=== PATIENT | male | born 1945 | race Caucasian/White ===

== ENCOUNTER 2019-01-26 14:32 | Outpatient (CLI) | payer MEDICARE ==
[~2019-01-26] VITALS: Ht 182.9 cm; Wt 88.9 kg
[2019-01-26 14:45] VITALS: BP 108/67
--- NOTE | 2019-01-26 21:45 | Consultation ---
DATE OF CONSULTATION: 01/26/2019 GASTROENTEROLOGY CONSULTATION CONSULTING PHYSICIAN: Yassine Rivas M.D. CHIEF COMPLAINT: History of colonic polyps, chronic constipation. HISTORY OF PRESENT ILLNESS: The patient is a very pleasant 73-year-old male, referred to us for evaluation of constipation and history of colonic polyps. PAST MEDICAL HISTORY: 1. Diabetes. 2. Hypertension. 3. Hypothyroidism. PAST SURGICAL HISTORY: Hernia repair. MEDICATIONS: Metformin, lisinopril, and Synthroid. FAMILY HISTORY: No family history of GI malignancies. SOCIAL HISTORY: The patient denies any tobacco, alcohol, or drug abuse. ALLERGIES: No known drug allergies. REVIEW OF SYSTEMS: A 10-point review of systems was performed and pertinent positives in HPI. PHYSICAL EXAMINATION: GENERAL: He is a well-developed male. VITAL SIGNS: Temperature 98.8, blood pressure is 108/67, pulse is 82, respirations 20. HEENT: Normocephalic and atraumatic. Sclerae anicteric. NECK: Supple. No obvious evidence of lymphadenopathy. CARDIOVASCULAR: Regular rhythm. Plus S1 and S2. No obvious murmur. LUNGS: Clear to auscultation bilaterally. ABDOMEN: Positive bowel sounds. Soft and nontender. No rebound. No guarding. No peritoneal sign. EXTREMITIES: No cyanosis, no clubbing, and no edema. ASSESSMENT AND PLAN: This is a 73-year-old male with chronic constipation. He goes to the bathroom every three days. I offered him to get some treatment for chronic constipation. He said, he doest not want it. He needs a colonoscopy because he had 6 or 7 polyps and is referred for a colonoscopy. plan for schedule him for next Thursday. The patient was given instructions for colonoscopy and colonoscopy prep. he scheduled for next week. Yassien Rivas M.D. DR: SHARMIN JOB#: [id number] CC: CHRISTIAN
[2019-01-28] MEDS ORDERED: METFORMIN HCL1000 M1 ORAL (15:57)
[2019-01-28] MEDS ORDERED: LISINOPRIL5 MG ORAL (15:57)
[2019-01-28] MEDS ORDERED: LEVOTHYROXINE75 MCG ORAL (15:57)
== END 2019-01-26 16:00 | disposition home or self-care (01) ==
LOC: PAN 14:32
DX: K59.00 Constipation, unspecified (principal); Z86.010 Personal history of colon polyps; Z79.899 Other long term (current) drug therapy; Z79.84 Long term (current) use of oral hypoglycemic drugs
CPT/HCPCS: 99202

== ENCOUNTER 2019-02-02 07:33 | Day surgery (SDC) | payer MEDICARE, OTHER ==
[~2019-02-02] VITALS: Ht 182.9 cm; Wt 86.2 kg
[2019-02-02] VITALS (8 sets, daily range): BP systolic 107–127; BP diastolic 63–75
--- NOTE | 2019-02-02 07:22 | Anethesia Preoperative Eval ---
Anesthesia Pre-op PMH/ROS General Date of Evaluation: February 02, 2019 Anesthesiologist: Micah ASA Score: ASA 3 Mallampati Score Class I : Soft palate, uvula, fauces, pillars visible Class II: Soft palate, uvula, fauces visible Class III: Soft palate, base of uvula visible Class IV: Only hard plate visible Mallampati Classification: Class II Surgeon: Evelyn Diagnosis: Abdominal pain Surgical Procedure: colonoscopy Anesthesia History: none Family History: no anesthesia problems Allergies: Coded Allergies: No Known Allergies (Unverified , 01/28/19) Medications: see eMAR Patient NPO?: Yes NPO Date: February 02, 2019 NPO Time: 00:00 Past Medical History Cardiovascular: Reports: HTN, other - HLD, PVD; Denies: CAD, VA, valve dz, arrhythmia Pulmonary: Denies: asthma, COPD, JUSTIN, other Gastrointestinal/Genitourinary: Reports: other - BPH; Denies: GERD, CRI, ESRD Neurologic/Psychiatric: Denies: dementia, CVA, depression/anxiety, TIA, other Endocrine: Reports: DM, hypothyroidism; Denies: steroids, other HEENT: Reports: cataract (L), cataract (R), SAMISH (L), SAMISH (R); Denies: glaucoma, other Hematology/Immune: Denies: anemia, DVT, bleeding disorder, other Musculoskeletal/Integumentary: Denies: OA, RA, DJD, DDD, edema, other PSxH Narrative: hernia repair, tonsillectomy Anesthesia Pre-op Phys. Exam Physician Exam see chart Constitutional: NAD Cardiovascular: RRR, other - bilateral lower extremity pitting edema-baseline as per patient Respiratory: CTA Airway Exam Mallampati Score: Class II MO: full ROM: full Anesthesia Pre-op A/P Labs see chart Studies Pre-op Studies: EKG - sr Risk Assessment & Plan Assessment: ASA II Plan: MAC Status Change Before Surgery: No Pre-Antibiotics Drug: N/A Kiya Banda MD February 02, 2019 07:22
[~2019-02-02 07:33] MED LIST: DiphenhydrAMINE 50mg/ml Inj IVP PRN; Fleet's Enema 133ml RECTAL ONE; Fleet's Enema 133ml RECTAL SCH; LEVOTHYROXINE75 MCG ORAL; LISINOPRIL5 MG ORAL; LR 1000ml 1,000 ML IVLG SCH; METFORMIN HCL1000 M1 ORAL
--- NOTE | 2019-02-02 08:48 | Pre-Procedure Note/Attestation ---
Pre-Procedure Note/Attestation Complete Prior to Procedure Planned Procedure: not applicable Procedure Narrative: colonoscopy Indications for Procedure Pre-Operative Diagnosis: screening Attestation I attest that I discussed the nature of the procedure; its benefits; risks and complications; and alternatives (and the risks and benefits of such alternatives ), prior to the procedure, with the patient (or the patient's legal phlebotomy services representative). I attest that, if there was a reasonable possibility of needing a blood transfusion, the patient (or the patient's legal phlebotomy services representative) was given the [facility] standardized written summary, pursuant to the Sae[place] Blood Safety Act ([place] Health and Safety Code # 1645, as amended). I attest that I re-evaluated the patient just prior to the surgery and that there has been no change in the patient's H&P, except as documented below: Yassine Rivas MD February 02, 2019 08:48
--- NOTE | 2019-02-02 08:48 | Short Stay Surgery H&P ---
History of Present Illness History of Present Illness Chief Complaint see recent office note HPI Gregg Felipe is a 73 year old male who was admitted on for Abdominal Pain Patient History Allergies: Coded Allergies: No Known Allergies (Unverified , 01/28/19) Medication History Scheduled Levothyroxine Sodium* (Levothyroxine Sodium*), Unknown Dose ORAL DAILY, ( Reported) Lisinopril (Lisinopril*), 5 MG ORAL DAILY, (Reported) Metformin Hcl* (Metformin Hcl*), 1,000 MG ORAL BID, (Reported) Physical Exam Vital Signs Last Vital Signs Date Time Temp Pulse Resp B/P (MAP) Pulse Ox O2 Delivery O2 Flow Rate FiO2 02/02/19 08:22 Room Air 02/02/19 08:20 98.0 70 20 127/73 96 Plan Attestation Are the patient's medical conditions optimized for surgery? Yassine Rivas MD February 02, 2019 08:48
--- NOTE | 2019-02-02 08:55 | NUR ---
DR PUCKETT AND LINDSAY AWARE PT HAS NO SOLID STOOL AFTER BOWEL MOVEMENT THIS AM. FLEETS ENEMA NOT NEEDED PER LINDSAYGI RN.
[2019-02-02] MEDS ORDERED: Lidocaine 1% MPF 10mg/ml 5ml ONE (09:00)
[2019-02-02] MEDS ORDERED: Propofol 200mg/20ml IV ONE (09:00)
[2019-02-02] MEDS ORDERED: LR 1000ml ONE (09:00)
--- NOTE | 2019-02-02 09:38 | Endoscopy Procedure Note ---
Endoscopy Procedure Note General Indication for Procedure: screening Procedures Performed: colonoscopy Operative Findings/Diagnosis: 2 polyps Specimen: yes Pt Tolerated Procedure Well: Yes Estimated Blood Loss: none Anesthesia Anesthesiologist: joby Anesthesia: MAC Inserted Devices Implant(s) used?: No Quality Quality of Bowel Preparation: Fair Did scope reach the cecum?: Yes Was there any complications?: No GI Core Measures 50 yrs or older w/o bx or poly: No 10yrs. F/U not recommended: Yes If not recommended, why?: Above average risk 10 yrs. F/U needed: Yes 18 years or older w/prev. colo: No Yassine Rivas MD February 02, 2019 09:38
--- NOTE | 2019-02-02 09:42 | Immediate Post-Op Evaluation ---
Immediate Post-Op Evalulation Immediate Post-Op Evalulation Procedure: Colonoscopy Date of Evaluation: February 02, 2019 Time of Evaluation: 09:42 IV Fluids: 300 Blood Products: 0 Estimated Blood Loss: 0 Urinary Output: 0 Blood Pressure Systolic: 115 Blood Pressure Diastolic: 75 Pulse Rate: 72 Respiratory Rate: 16 O2 Sat by Pulse Oximetry: 99 Temperature (Fahrenheit): 98.4 Pain Score (1-10): 0 Nausea: No Vomiting: No Complications 0 Patient Status: awake, reacts, patent, none Hydration Status: adequate Drug: N/A Kiya Banda MD February 02, 2019 09:42
--- NOTE | 2019-02-02 09:43 | 48 Hour Post Anesthesia Eval ---
Post Anesthesia Evaluation Procedure: Colonoscopy Date of Evaluation: February 02, 2019 Airway: patent Nausea: No Vomiting: No Pain Intensity: 0 Hydration Status: adequate Cardiopulmonary Status: at baseline Mental Status/LOC: patient returned to baseline Post-Anesthesia Complications: 0 Follow-up care needed: ready to discharge Kiya Banda MD February 02, 2019 09:42
--- NOTE | 2019-02-02 14:10 | NUR ---
PATIENT NOTIFIED FIGUEROA MONTOYA RN THAT HE IS HOME SAFE. NO PROBLEM
--- NOTE | 2019-02-02 17:00 | Procedure Note ---
DATE OF PROCEDURE: 02/02/2019 SURGEON: Yassine Rivas M.D. PROCEDURE: Colonoscopy with biopsy and snare polypectomy. ANESTHESIA: Per Dr. Obrien. INSTRUMENT: Olympus adult flexible colonoscope. INDICATION: 1. Screening colonoscopy. 2. Chronic constipation. REASON FOR PROCEDURE: The procedure, risks, benefits, and possible consequences, including hemorrhage, aspiration, perforation and infection, and alternative treatments, were explained to the patient/legal guardian by Dr. Yassine Rivas and the patient/legal guardian understood and accepted these risks. DESCRIPTION OF PROCEDURE: After informed consent was obtained and the patient was adequately sedated, first rectal exam was performed, which was positive for internal hemorrhoids. Then, the scope was advanced from rectum into the cecum. Quality of prep was fair, I would say about 25% of the colonic mucosa was not examined given this prep especially in the cecum and also in the left colon. We tried as best as we could to suction the fluid out. The scope got clogged up few times that made our examination limited. There is no active bleeding. The patient had two polyps in the rectum, one right above the dentate line measured roughly about 6 mm removed with hot snare polypectomy technique. The smaller polyp was in the mid the rectum which was removed with the cold biopsy forceps technique. Retroflexion of rectum showed evidence of internal hemorrhoids. SUMMARY OF FINDINGS: 1. Fair colonic prep, 25% of the colonic mucosa was not examined. 2. Internal hemorrhoids. 3. Two rectal polyps removed, see above for details. RECOMMENDATIONS: Followup biopsy results. Given this kind of prep and two polyps, we recommend repeat colonoscopy in three years. Yassine Rivas M.D. DR: Mykel JOB#: [id number] CC:
--- NOTE | 2019-02-03 17:45 | Cardiology Report ---
APPROVED REPORT EKG Measurement Heart [id number] Normal sinus rhythm Normal ECG
== END 2019-02-02 11:15 | disposition home or self-care (01) ==
LOC: GAS 07:33
DX: Z12.11 Encounter for screening for malignant neoplasm of colon (principal); K59.09 Other constipation; D12.7 Benign neoplasm of rectosigmoid junction; K64.8 Other hemorrhoids; K63.5 Polyp of colon; Z79.899 Other long term (current) drug therapy; Z79.84 Long term (current) use of oral hypoglycemic drugs; E78.5 Hyperlipidemia, unspecified; E11.9 Type 2 diabetes mellitus without complications; E03.9 Hypothyroidism, unspecified; R60.0 Localized edema
CPT/HCPCS: 45380; 45385; 82962; 93005; J2704; 94003; 94150